=== PATIENT | female | born 1970 | race Caucasian/White ===

== ENCOUNTER 2023-03-15 16:59 | Outpatient (REF) | payer OTHER, SELFPAY ==
--- NOTE | 2023-03-15 15:00 | ENDO_PTH ---
PATIENT: Shahnaz Coombs LOC: N U#:[id number] AGE/SX: 53/F ROOM: RE03/15/[address]: Clarisse Toussaint DO : 1970 BED: DIS: 03/15/2023 SPEC #: [id number] RECD: 03/15/23 17:25 STATUS: ASHUTOSH REQ #: [id number] MIYA: 03/15/23 15:[address]: Clarisse Toussaint DEPT: Surgical Specimen RECD BY: Doretha Ness ENTERED: 03/15/23 17:25 SP TYPE: Endo OTHR DR: Debra Williamson Tissues: 1 - ENDOCERVICAL BX/CURRETTE Procedures: GROSS AND MICRO LEVEL 4 Comments: [id number]
--- NOTE | 2023-03-15 15:00 | PAPFT_PTH ---
PATIENT: Shahnaz Coombs LOC: [facility] U#:[id number] AGE/SX: 53/F ROOM: RE03/15/[address]: Clarisse Toussaint DO : 1970 BED: DIS: 03/15/2023 SPEC #: [id number] RECD: 03/15/23 17:40 STATUS: ASHUTOSH REQ #: [id number] MIYA: 03/15/23 15:[address]: Clarisse Toussaint DEPT: [facility] Cytology RECD BY: Doretha Ness ENTERED: 03/15/23 17:40 SP TYPE: PAPFT OTHR DR: Debra Williamson Tissues: 1 - CX/ENDOCX FOR PAP SMEARS Procedures: PAP THIN PREP/UVM Screening HPV DNA PROBE Comments: [id number]
== END 2023-03-15 17:00 | disposition home or self-care (01) ==
LOC: LBN 16:59
PROVIDERS: PCP Family Medicine; Visit Provider Obstetrics & Gynecology
DX: Z12.4 Encounter for screening for malignant neoplasm of cervix (principal); Z11.51 Encounter for screening for human papillomavirus (HPV); N84.1 Polyp of cervix uteri
CPT/HCPCS: 88142; 88305; 87624

== ENCOUNTER 2023-03-23 02:51 | Outpatient (CLI) | payer OTHER, SELFPAY ==
[2023-03-23 18:48] LABS: TSH (W/Ref FT4) 1.25 uIU/mL (0.36-3.74)
[2023-03-24 18:28] LABS: FSH 4.5 mIU/mL (See Note)
== END 2023-03-23 02:52 | disposition home or self-care (01) ==
PROVIDERS: PCP Family Medicine; Visit Provider Obstetrics & Gynecology
DX: N93.8 Other specified abnormal uterine and vaginal bleeding (principal); Z12.31 Encounter for screening mammogram for malignant neoplasm of breast
CPT/HCPCS: 36415; 83001; 84443

== ENCOUNTER → 2023-03-31 00:38 | Outpatient (CLI) | payer OTHER, SELFPAY ==
--- NOTE | 2023-03-31 07:15 | DI.US_ITS ---
Exam(s) US PELVIS TRANSVAGINAL EXAM: US PELVIS TRANSVAGINAL CLINICAL HISTORY: check anatomy,dysfunctional uterine bleeding,n93.8. TECHNIQUE: Transabdominal and transvaginal pelvic ultrasound was performed using standard protocol. COMPARISON: No exams were available for comparison FINDINGS: UTERUS: Position: Anteverted. Size: 8.8 long by 6.6 AP by 6.1 transverse cm Endometrium: 1.1 cm. Normal for patient's menstrual status. Myometrium: There is a 3.2 x 2.2 x 3.0 cm hypoechoic mass in the anterior body of the uterus. It mckee s exert a mass effect on the adjacent endometrium. Cervix: Unremarkable. OVARIES: Right: 3.4 x 1.4 x 2.5 cm Cyst or mass: No suspicious cystic or solid masses. Left: 2.9 x 1.0 x 1.9 cm Cyst or mass: No suspicious cystic or solid masses. DOPPLER: Color: Symmetric and uniform flow to both ovaries. CUL-DE-SAC: Free fluid: None. Other: None. IMPRESSION: 1. 3.2 x 2.2 x 3.0 cm hypoechoic mass in the anterior body of the uterus exerting mass effect on the adjacent endometrium. This may be a uterine fibroid. An endometrial mass should also be considered. MRI of the pelvis should be considered for further evaluation. 2. Unremarkable bilateral ovaries. Unexpected findings DATA REPOSITORY:
--- NOTE | 2023-03-31 07:15 | DI.MAMMO_ITS ---
Exam(s) MAMMO SCREENING EXAM: MAMMO SCREENING CLINICAL HISTORY: screening,z12.39 TECHNIQUE: Bilateral full field digital CC and MLO mammographic images were obtained with 3D tomosyn thesis and utilizing computer aided detection (CAD). COMPARISON: Available for comparison. FINDINGS: Masses/Architectural Distortion: None seen. Microcalcifications: No suspicious pleomorphic-type are seen. Skin Thickening/Nipple Retraction: None. IMPRESSION: 1. No significant interval change with no specific features of malignancy noted. 2. Unless there is more urgent need, screening mammography is recommended, as per [employer] guidelines. BI-RADS Category 1 - Negative Breast Density - Category C - Heterogeneously dense Breast density category C or D implies that the patient has dense breast tissue. Dense breast tissue is very common and is not abnormal but dense breast tissue can make it harder to find cancer on a ma mmogram. Also, dense breast tissue may increase their breast cancer risk. This information about the result of the mammogram report was provided to the patient to raise their awareness. Use this report when you speak with the patient about their risks for breast cancer, which includes their family hist ory. At that time, you may recommend for more screening tests (Ultrasound or MRI) as they might be us eful based on their risk. A negative radiographic report should not delay biopsy if a dominant or clinically suspicious mass is present. Up to ten percent of cancers are not identified on mammography. A negative report may reinforce clinical impression. Adenosis and dense breasts may obscure an underlying neoplasm. False positive reports average 6 to 10%. Patient will receive a letter notifying them of these results.
== END ==
PROVIDERS: PCP Family Medicine; Visit Provider Obstetrics & Gynecology
DX: N93.8 Other specified abnormal uterine and vaginal bleeding (principal); Z12.31 Encounter for screening mammogram for malignant neoplasm of breast; N85.8 Other specified noninflammatory disorders of uterus
CPT/HCPCS: 77063; 77067; 76830; 76856

== ENCOUNTER 2023-05-10 03:31 | Outpatient (CLI) | payer OTHER, SELFPAY ==
[2023-05-10 16:57] LABS: Abs Immature Grans 0.01 10^3/uL (0.0-0.06); Absolute Eosinophil Count 0.25 10^3/uL (0.0-0.7); Absolute Lymphocyte Count 2.29 10^3/uL (1.2-3.4); Absolute Monocyte Count 0.61 10^3/uL (0.1-0.8); Absolute Neutrophil Count 2.92 10^3/uL (1.2-6.7); Basophils % 1.6; HCT 41.1 % (36.0-46.0); HGB 13.8 g/dL (11.2-15.7); Immature Grans % 0.2; Lymphocytes % 37.1; MCH 29.6 pg (27.0-33.0); MCHC 33.6 % (32.0-36.0); MCV 88 fL (80-95); MPV 10.2 fL (8.0-11.0); Monocytes % 9.9; Neutrophils % 47.2; Platelet Count 222 10^3/uL (130-400); RBC 4.66 10^6/uL (3.93-5.22); RDW 12.2 % (11.7-14.6); RDW-SD 39.2 fL; WBC 6.18 10^3/uL (4.4-10.8)
== END 2023-05-10 03:32 | disposition home or self-care (01) ==
LOC: LBO 03:42
PROVIDERS: PCP Family Medicine; Visit Provider Obstetrics & Gynecology
DX: Z01.818 Encounter for other preprocedural examination (principal)
CPT/HCPCS: 36415; 86850; 86900; 86901; 85025

== ENCOUNTER 2023-05-12 08:59 | Day surgery (SDC) | payer OTHER, SELFPAY ==
[2023-05-12] VITALS (18 sets, daily range): BP systolic 113–176; BP diastolic 57–86; PULSE 53–88; RESP 15–174; TEMP 36–36.8; O2SAT 98–100; BMI 20.3
--- NOTE | 2023-05-12 09:17 | W.ANESPRE ---
General Info Date of Service Date Performed: 05/12/23 Height: 5 ft 7 in Weight: 58.967 kg Body Mass Index (BMI): 20.3 Surgical Procedure: Operation Date: 05/12/23 09:25 Proposed Procedure Side Surgeon p Dilation & Curettage with Hysteroscopy, Myosure Clarisse Toussaint DO Meds Allergies and Home Medications Allergies Allergy/AdvReac Type Severity Reaction Status Date / Time Tetracyclines Allergy Intermediate Skin Rash Unverified 05/11/23 13:36 Home Medication Medication Instructions Recorded multivitamin 1 ea PO DAILY 05/08/15 Current Visit Medications: Current Medications Generic Name Dose Route Start Last Admin Trade Name Freq PRN Reason Stop Dose Admin Ringer's Solution 1,000 mls @ 125 mls/hr 05/12/23 06:00 IV 05/12/23 23:59 INFUSION HATTIE IV Miscellaneous Supplies 1 each 05/12/23 06:00 Iv Access IV 05/12/23 23:59 DIRECTED HATTIE Sodium Chloride 0 ml 05/12/23 06:00 Normal Saline Flush 10 Ml Syr IV 05/12/23 23:59 PRN PRN Sodium Chloride 0 ml 05/12/23 06:00 Normal Saline 10 Ml Vial IJ 05/12/23 23:59 DIRECTED PRN Sterile Water 0 ml 05/12/23 06:00 Water,Injection,Sterile 10 Ml Vial IJ 05/12/23 23:59 DIRECTED PRN PFSH Active Problems Active Problems: Problem Status Onset Code Thickened endometrium R93.89 Well woman exam with routine gynecological exam Z01.419 DUB (dysfunctional uterine bleeding) N93.8 Tobacco Smoking/Tobacco Use Status: Never Alcohol Alcohol Intake: never Substance Use Substance use: Never Substance use type: does not use Prental History History 3 Para 3 Hx # Term Pregnancies 3 Multiple births Hx # Pregnancies Ectopic pregnancies AB induced Hx Number of Living Children 3 AB spontaneous Vital Signs and Lab Results Lab Results Blood Type / Crossmatch: Patient ABO/Rh A Positive 05/10/23 Antibody Screen NEGATIVE 05/10/23 Complete Blood Count: White Blood Count 6.18 10^3/uL (4.4-10.8) 05/10/23 16:49 Red Blood Count 4.66 10^6/uL (3.93-5.22) 05/10/23 16:49 Hemoglobin 13.8 g/dL (11.2-15.7) 05/10/23 16:49 Hematocrit 41.1 % (36.0-46.0) 05/10/23 16:49 Platelet Count 222 10^3/uL (130-400) 05/10/23 16:49 Complete Metabolic Panel: No Data to Display Liver Function Panel: No Data to Display Coagulation Panel: No Data to Display Cardiac Panel: No Data to Display Arterial Blood Gas: No Data to Display Venous Blood Gas: No Data to Display Pancreas Panel: No Data to Display Thyroid Panel: No Data to Display Infectious Disease: No Data to Display Blood Cultures: No Data to Display Toxicology Panel: No Data to Display Panel: No Data to Display Anesthesia Assessment and Plan Anesthesia History Personal History: No History of General Anesthesia Family History: No Family History of Anesthesia Complications Exercise Tolerance Exercise Tolerance: Metabolic Equivalents>4 Pertinent Negatives Pertinent Negatives: No Symptoms of GERD, No Major Cardiovascular Symptoms or Complaints and No Major Pulmonary Symptoms or Complaints Cardiac & Pulmonary Exam Cardiac Exam: Normal S1/S2 Heart Sounds Pulmonary Exam: Clear Bilateral Breath Sounds Implantable Cardiac Device Does patient have a Pacemaker or an ICD?: No Airway Exam Known Difficult Airway: No Mallampati Class: 1 Mouth Opening: Normal (> 3cm) Thyromental Distance: Greater than 3 cm Neck Range of Motion: Full ROM Neck Circumference: Normal Teeth Condition: Normal Dentition ASA Classification ASA Score: ASA 2 Emergency Case?: No NPO Status NPO Status: NPO Clears >2 hours, Solids >8 hours Status Status: Negative HCG Anesthesia Plan Resuscitation Status: Full Code Anesthesia Technique: General Anesthesia Airway Planned: LMA Monitors Used: Standard Monitors
[2023-05-12] MEDS: Lactated Ringers 1,000 ML 125 ML IV (09:37)
--- NOTE | 2023-05-12 10:20 | ENDO_PTH ---
PATIENT: Shahnaz Coombs LOC: [facility] U#:[id number] AGE/SX: 53/F ROOM: RE05/12/[address]: Clarisse Toussaint DO : 1970 BED: DIS: 05/12/2023 SPEC #: [id number] RECD: 05/12/23 12:58 STATUS: SOUBranden REQ #: [id number] MIYA: 05/12/23 10:[address]: Clarisse Toussaint DEPT: Surgical Specimen RECD BY: Doretha Ness ENTERED: 05/12/23 12:59 SP TYPE: Endo OTHR DR: No Local Tissues: 1 - ENDOCERVICAL BX/CURRETTE 2 - ENDOMETRIUM BX/CURRETTE Procedures: GROSS AND MICRO LEVEL 4 Comments: [id number]
--- NOTE | 2023-05-12 10:38 | W.PM.OP ---
Date of service: 05/12/23 Time of Service: 10:38 Operative Note Operative Note DATE OF PROCEDURE: 05/12/23 PRE-OP DIAGNOSIS: Dysfunctional uterine bleeding POST-OP DIAGNOSIS: same PROCEDURE: Hysteroscopy with dilation and curettage SURGEON: Clarisse Toussaint ANESTHESIA TYPE: General LMA/ETT Refer to Anesthesia Record ESTIMATED BLOOD LOSS: 10 PATHOLOGY: other (1. Endocervical curettage 2. Endometrial curettage) COMPLICATIONS: None Patient was transported to: same day Patient's condition: stable Indications: Dysfunctional uterine bleeding Findings: [place] endometrium Procedure Description: After full informed consent was obtained, patient to the operating suite with an IV running. She is placed in the supine position and general anesthesia was administered. She was then placed in the dorsal lithotomy position in yellowfin stirrups and prepped and draped in usual sterile fashion. Exam under anesthesia revealed a uterus that was midline and mobile. Bladder was emptied for approximately 50 cc of clear yellow urine. At this point speculum was inserted into the vaginal vault single-tooth tenaculum used to grasp the anterior lip of the cervix. Cervical os dilated to the point that a 5 mm hysteroscope could be passed without difficulty. With instillation of normal saline, endometrial cavity was inspected without evidence of significant polyp or fibroid. At this point, hysteroscope was discontinued with a total deficit of 20 cc of normal saline. At this point endocervical and endometrial curettage were performed for a small amount of tissue. Single-tooth tenaculum was removed and puncture sites are hemostatic. Speculum was then removed and the patient was returned to the dorsal supine position without difficulty. She woke from anesthesia with ease and was taken the recovery room in stable condition. EBL: 10 mL Fluids: Crystalloid per anesthesia and 20 cc normal saline deficit for hysteroscope. Pathology: 1 endocervical curettage 2. Endometrial curettage Complications: None apparent
[2023-05-12] MEDS: Midazolam 2 MG/2 ML VIAL IVP (10:47)
[2023-05-12] MEDS: LORazepam 2 MG/ML VIAL (12:08)
--- NOTE | 2023-05-12 13:48 | W.PM.PROGNOT ---
Date of Service Date of service: 05/12/23 Time of Service: 13:49 Subjective Subjective Interval history since last seen: I was able to see the patient in the recovery room when she was having episodes of apparent catatonia. She had tremors, shaking, stable vital signs, and a remarkably benign neurologic examination. In light of her condition, postoperative neurology consultation was performed by Dr. Edmondson. Patient received a small dose of Ativan in the recovery period after having received Versed. She was slowly progressively improving as her medications cleared. I was able to notify both the partner, and have conversation with the patient as she recovered from her apparent neurologic dysfunction. All of her questions were answered to the best my ability. She was transferred to the same-day surgical area and will be discharged home later today if stable. Objective Last Vital Signs Temp 97.3 F L 05/12/23 13:36 Pulse 74 05/12/23 13:36 Resp 16 05/12/23 13:36 BP 132/75 05/12/23 13:36 Pulse Ox 98 05/12/23 13:36 Time Spent with Patient Time Spent with Patient: 25-34 minutes Time was spent: preparing to see the patient(eg.review tests), referring, communicating with other health health care legal assistant, counseling the patient and care coordination
--- NOTE | 2023-05-12 14:01 | W.ANESPOSTOP ---
Postoperative Evaluation Date, Time and Location Date Performed: 05/12/23 Time Performed: 13:50 Patient Location: Day Surgery Unit Vital Signs Most Recent Imported Vital Signs: Most Recent Vital Signs Temp Pulse Resp BP Pulse Ox 36.3 C L 74 16 132/75 98 05/12/23 13:36 05/12/23 13:36 05/12/23 13:36 05/12/23 13:36 05/12/23 13:36 Pain Score Most Recent Pain Score: Most Recent Pain Score Pain Level 0 05/12/23 13:07 Assessment Mental Status: Awake (Alert & Oriented to Patient Baseline) Airway and Respiratory Function: Patent airway with normal (patient baseline) respiratory exam Cardiovascular Function: Hemodynamically Stable Hydration Status: Adequately Hydrated Nausea & Vomiting: No Nausea or Vomiting Pain: Pt. 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 Patient verbalized understanding that she is slow to wake up from anesthesia and will reach back out to the team if she has any additional concerns.
--- NOTE | 2023-05-13 09:06 | PDOC.ANES ---
Date of service: 05/12/23 Time of Service: 10:45 Anesthesia Note Report Anesthesia Note: Present at patient bedside following admission to the PACU. The patient's vital signs were stable and was breathing spontaneously when intermittent rhythmic movement of right upper extremity and hyperventilation commenced. Unable to calm the patient with verbal reassurance and midazolam 2mg administered, see PACU MAR. The patient became apenic and mask ventilation was performed successfully with return of spontaneous ventilations in 2/minutes. The patient rested for some time and then apparently, per PACU, awakened again but in an apparent catatonic state. The patient had appropriate puppillary light relfex and all vitals remained stable. Other metablic derangements were considered and ruled out, as well as a benign physical exam. was made aware of the patient's current state. The patient continued to have cyclical periods of shaking and hyperventilation. Dr. Edmondson was consulted, neurogloy, and came to evaluate the patient per PACU record. See additional PACU notes for the patient's course. The patient's significant other was updated throughout the recovery course. The patient was ultimately transferred to DSU with an uneventful discharge. All questions to the patient were answered to the best of my ability. Patient encouraged to reach out with any additional questions.
== END 2023-05-12 13:10 | disposition home or self-care (01) ==
PROVIDERS: Visit Provider Obstetrics & Gynecology
PROC: 0UDB8ZZ Extraction of Endometrium, Via Natural or Artificial Opening Endoscopic (ICD-10-PCS; CPT 58558; principal; 2023-05-12 09:15)
DX: N93.8 Other specified abnormal uterine and vaginal bleeding (principal); R93.89 Abnormal findings on diagnostic imaging of other specified body structures
CPT/HCPCS: 58558; 81025; 88305; J1100; J1885; J2001; J2060; J2250; J2405; J2704

== ENCOUNTER 2024-06-16 20:11 | Outpatient (REF) | payer OTHER, SELFPAY ==
[2024-06-16 18:51] LABS: HCT 40.8 % (36.0-46.0); HGB 13.2 g/dL (11.2-15.7); MCH 28.7 pg (27.0-33.0); MCHC 32.4 % (32.0-36.0); MCV 89 fL (80-95); MPV 10.6 fL (8.0-11.0); Platelet Count 218 10^3/uL (130-400); RDW 12.8 % (11.7-14.6); RDW-SD 41.9 fL
[2024-06-16 19:20] LABS: ALT 23 U/L (14-59); AST 23 U/L (15-37); Alkaline Phosphatase 49 U/L (46-116); Anion Gap 9.1 mmol/L (3-11); BUN 10 mg/dL (7-18); Bilirubin, Total 0.66 mg/dL (0.2-1.0); CO2 26.9 mmol/L (21.0-32.0); CREATININE 0.9 mg/dL (0.55-1.02); Calcium 9.5 mg/dL (8.5-10.1); Chloride 105 mmol/L (98-107); Estimated GFR 76.44 (mL/min/1.73m2); Glucose 87 mg/dL (74-106); Sodium 141 mmol/L (136-145); TSH (W/Ref FT4) 1.69 uIU/mL (0.36-3.74); Total Protein 7.6 g/dL (6.4-8.2)
[2024-06-16 19:24] LABS: Hemoglobin A1C 5.3 % (<5.7)
[2024-06-19 10:06] LABS: Hepatitis C Ab w Rflx HCV PCR Negative (Negative)
[2024-06-19 10:24] LABS: HIV-1/2 Ag & Ab Screen Negative (Negative)
== END 2024-06-16 20:12 | disposition home or self-care (01) ==
LOC: NCHCN 20:11
PROVIDERS: Visit Provider Nurse Practitioner Family
DX: Z00.00 Encounter for general adult medical examination without abnormal findings (principal)
CPT/HCPCS: 80053; 85027; 86803; 87389; 83036; 84443

== ENCOUNTER 2024-11-01 01:55 | Outpatient (CLI) | payer OTHER, SELFPAY ==
--- NOTE | 2024-11-01 | DI.MAMMO_ITS ---
Exam(s) MAMMO SCREENING EXAM: MAMMO SCREENING CLINICAL HISTORY: Z12.31 Screening. TECHNIQUE: Bilateral full field digital CC and MLO mammographic images were obtained with 3D tomosynthesis and utilizing computer aided detection (CAD). COMPARISON: Prior mammograms dating back to 2017 were reviewed. FINDINGS: Fibroglandular tissue pattern is again noted be moderately dense. There is a microcalcification group in the upper left breast which appears stable when compared to prior mammograms. There are no new spiculated masses nor new malignant appearing microcalcification groups. There is no significant architectural distortion nor skin thickening-retraction. IMPRESSION: Stable benign findings. No radiographic evidence of malignancy. BI-RADS Category 2 - Benign Findings Breast Density - Category C - The breast are heterogeneously dense, which may obscure small masses. Breast density Category C or D implies that the patient has dense breast tissue. Dense breast tissue can make it harder to find cancer on a mammogram. Dense breast tissue is also associated with an increased risk of breast cancer. This information about the result of the mammogram report was provided to the patient to raise their awareness. Use this report when you speak with the patient about their risks for breast cancer, which includes their family history. At that time, you may recommend additional screening tests (Ultrasound or MRI) as these tests may add significant information. A negative radiographic report should not delay biopsy if a dominant or clinically suspicious mass is present. Up to ten percent of cancers are not identified on mammography. A negative report may reinforce clinical impression. Adenosis and dense breasts may obscure an underlying neoplasm. False positive reports average 6 to 10%. Patient will receive a letter notifying them of these results.
== END 2024-11-01 02:15 ==
PROVIDERS: PCP Nurse Practitioner Family; Visit Provider Nurse Practitioner Family
DX: Z12.31 Encounter for screening mammogram for malignant neoplasm of breast (principal); R92.333 Mammographic heterogeneous density, bilateral breasts; D24.2 Benign neoplasm of left breast
CPT/HCPCS: 77063; 77067